=== PATIENT | male | born 1990 | race Caucasian/White ===

== ENCOUNTER 2017-02-13 18:29 | Emergency (ER) | payer BC ==
[2017-02-13] MEDS ORDERED: Diphtheria,Pertussis(Acell),Tetanus Vaccine 0.5 ML Syringe IM ONE (18:51)
[2017-02-13] MEDS ORDERED: Bacitracin Oint 1 GM U/D Packet TOP ONE (19:10)
--- NOTE | 2017-02-13 19:26 | EDM.PDOC ---
ED HPI Skin/Rash - General Chief Complaint: Laceration Stated Complaint: LACERATION RT INDEX FINGER Time Seen by Provider: 02/13/17 19:10 Source: Reports: Patient History Limitations: Reports: No limitations - History of Present Illness INITIAL COMMENTS - FREE TEXT/NARRATIVE: HISTORY AND PHYSICAL: History of present illness: [] 26-year-old male with no significant past history now status post oval coley from a meat pumper of the very tip of his right index finger. Some bleeding now hemostatic. No nail bed involvement. Bone is not exposed. Tetanus is not up-to- date Review of systems: As per history of present illness and below otherwise all systems reviewed and negative. Past medical history: As per history of present illness and as reviewed below otherwise noncontributory. Surgical history: As per history of present illness and as reviewed below otherwise noncontributory. Social history: No reported history of drug or alcohol abuse. Family history: As per history of present illness and as reviewed below otherwise noncontributory. Physical exam: HEENT: Atraumatic, normocephalic, pupils reactive, negative for conjunctival pallor or scleral icterus, mucous membranes moist, throat clear, neck supple, nontender, trachea midline. Lungs: Clear to auscultation, breath sounds equal bilaterally, chest nontender. Heart: S1S2, regular, negative for clicks, rubs, or JVD. Abdomen: Soft, nondistended, nontender. Negative for masses or hepatosplenomegaly. Negative for costovertebral tenderness. Pelvis: Stable nontender. Genitourinary: Deferred. Rectal: Deferred. Extremities: Atraumatic, negative for cords or calf pain. Neurovascular unremarkable. Neuro: Awake, alert, oriented. Cranial nerves II through XII unremarkable. Cerebellum unremarkable. Motor and sensory unremarkable throughout. Exam nonfocal. Diagnostics: [] Therapeutics: [] Impression: [] Plan: [] Definitive disposition and diagnosis as appropriate pending reevaluation and review of above. - Related Data Allergies Allergy/AdvReac Type Severity Reaction Status Date / Time prednisone Allergy Hives Verified 02/13/17 18:42 promethazine HCl Allergy Itching Verified 02/13/17 18:42 [From Phenergan] Home Meds: Ambulatory Orders Medication Instructions Recorded Confirmed Naphazoline HCl/Glycerin [Clear 1 drop EYEBOTH DAILY PRN 05/19/16 07/01/16 Eyes Redness Relief Drop] Levalbuterol Tartrate [Xopenex Hfa] 02/13/17 Past Medical History - Past Health History Medical/Surgical History: Denies Medical/Surgical History HEENT History: Reports: None Cardiovascular History: Reports: None Respiratory History: Reports: Asthma Gastrointestinal History: Reports: GERD Genitourinary History: Reports: None Musculoskeletal History: Reports: Other (see below) Other Musculoskeletal History: hx of torn tendon left ankle Neurological History: Reports: None Psychiatric History: Reports: None Endocrine/Metabolic History: Reports: None Hematologic History: Reports: None Immunologic History: Reports: None Oncologic (Cancer) History: Reports: None Dermatologic History: Reports: Condyloma - Infectious Disease History Infectious Disease History: Reports: Human papilloma virus (HPV) - Past Surgical History Head Surgeries/Procedures: Reports: None HEENT Surgical History: Reports: None Cardiovascular Surgical History: Reports: None Respiratory Surgical History: Reports: None Male Surgical History: Reports: None Endocrine Surgical History: Reports: None Neurological Surgical History: Reports: None Oncologic Surgical History: Reports: None Dermatological Surgical History: Reports: None Social & Family History - Tobacco Use Smoking Status *Q: Never Smoker Years of Tobacco use: 1 Used Tobacco, but Quit: Yes Month Tobacco Last Used: October Second Hand Smoke Exposure: No - Alcohol Use Days Per Week of Alcohol Use: 2 Number of Drinks Per Day: 1 Total Drinks Per Week: 2 - Recreational Drug Use Recreational Drug Use: Yes Drug Use in Last 12 Months: Yes Recreational Drug Type: Reports: Marijuana/Hashish Recreational Drug Use Frequency: Daily Recreational Drug Last Use: used last june 27 ED ROS GENERAL - Review of Systems Review Of Systems: See Below (See history of present illness) ED EXAM, SKIN/RASH Exam: See Below (Per history of present illness) Course - Vital Signs Text/Narrative:: Patient with a half centimeter by half centimeter extremely superficial avulsion to the very distal tip of his right index finger. He is right-hand dominant this injury has nothing to do with his function. It is extremely superficial neck no nailbed involvement or bony involvement. No gross contamination. Wound irrigated and dressing applied. Patient aware to do good wound care and apply topical anabolic ointment. Follow up PCP 2 days for wound check and return for signs of infection. Motrin and Tylenol as needed for pain Last Recorded V/S: Last Vital Signs Temp 36.6 C 02/13/17 19:55 Pulse 68 02/13/17 19:55 Resp 16 02/13/17 19:55 BP 125/74 02/13/17 19:55 Pulse Ox 99 02/13/17 19:55 - Orders/Labs/Meds Orders: Active Orders 24 hr Category Date Time Status Vaccines to be Administered [RC] PER UNIT ROUTINE Care 02/13/17 18:51 Active Meds: Medications Discontinued Medications Generic Name Dose Route Start Last Admin Trade Name Crystal PRN Reason Stop Dose Admin Bacitracin 1 dose 02/13/17 19:10 02/13/17 19:39 Bacitracin Oint 1 Gm TOP 02/13/17 19:11 1 dose ONETIME ONE Administration Diphtheria/Tetanus/Acell Pertussis 0.5 ml 02/13/17 18:51 02/13/17 19:17 Adacel IM 02/13/17 18:52 0.5 ml .ONCE ONE Administration Departure - Departure Time of Disposition: 19:38 Disposition: Home, Self-Care 01 Condition: good Clinical Impression: Avulsion of skin of finger without complication Instructions: Nail Avulsion, Nail Bed Injury, [id number] Referrals: PCP,None [Primary Care Provider] - Forms: ED Department Discharge Additional Instructions: You have an avulsion of your right index fingertip. Full coley means that some tissue has been removed. In your case this is a very small amount of skin at the tip of your finger and it does not involve your nailbed bone or any other structures except skin at the very tip. Use antibiotic ointment and a Band-Aid and take Motrin and Tylenol as needed for pain. Elevate if it's throbbing today in follow up with your DrVeronika in 2 days for a wound check. Return for signs of infection. Avoid bumping on things until healed as that will definitely hurt
[2017-02-13 19:56] VITALS: BP 125/74
== END 2017-02-13 19:56 | disposition home or self-care (01) ==
LOC: MW.ED 18:29
DX: S61.210A Laceration without foreign body of right index finger without damage to nail, initial encounter (principal); J45.909 Unspecified asthma, uncomplicated; K21.9 Gastro-esophageal reflux disease without esophagitis; Z88.8 Allergy status to other drugs, medicaments and biological substances; Z23 Encounter for immunization; W26.8XXA Contact with other sharp object(s), not elsewhere classified, initial encounter
CPT/HCPCS: 90471; 90715; 99282; 99282-25

== ENCOUNTER 2020-05-14 19:14 | Emergency (ER) | payer BC, OTHER ==
[2020-05-14 19:26] VITALS: BP 121/70; PULSE 58
--- NOTE | 2020-05-14 19:33 | EDM.PDOC ---
ED HPI GENERAL MEDICAL PROBLEM - General Chief Complaint: Genitourinary Problem Stated Complaint: LOWER BODY PAIN Time Seen by Provider: 05/14/20 19:18 Source of Information: Reports: Patient History Limitations: Reports: No Limitations - History of Present Illness INITIAL COMMENTS - FREE TEXT/NARRATIVE: HISTORY AND PHYSICAL: History of present illness: Patient is a 29-year-old male who presents to the emergency room with complaints of bilateral testicle pain. He states he was working on his truck yesterday when he hit himself in the testicles with a wrench. He states the pain started to improve last evening into today until he had gone to the gym. He now has moderate pain to bilateral testes which is somewhat improved with rest. Patient denies any fever, chills, headache, change in vision, syncope or near syncope. Denies any chest pain, back pain, shortness of breath or cough. Denies any abdominal pain, nausea, vomiting, diarrhea, constipation or dysuria. Has not noted any blood in urine or stool. Patient has been eating and drinking appropriately. Review of systems: As per history of present illness and below otherwise all systems reviewed and negative. Past medical history: As per history of present illness and as reviewed below otherwise noncontributory. Surgical history: As per history of present illness and as reviewed below otherwise noncont ributory. Social history: See social history for further information Family history: As per history of present illness and as reviewed below otherwise noncontributory. Physical exam: General: Well-developed and well-nourished 29-year-old male. Alert and oriented. Nontoxic-appearing and in no acute distress. HEENT: Atraumatic, normocephalic, pupils equal and reactive bilaterally, negative for conjunctival pallor or scleral icterus, mucous membranes moist, TMs normal bilaterally, throat clear, neck supple, nontender, trachea midline. No drooling or trismus noted. No meningeal signs. No hot potato voice noted. Lungs: Clear to auscultation, breath sounds equal bilaterally, chest nontender. Heart: S1S2, regular rate and rhythm without overt murmur Abdomen: Soft, nondistended, nontender. Negative for masses or hepatosplenomegaly. Negative for costovertebral tenderness. Pelvis: Stable nontender. Genitourinary: This was done with consent and a barrel lathe operator outside at the bedside. Testes symmetrical bilaterally without any redness or soft tissue swelling noted. Mild tenderness with palpation of bilateral testes. No inguinal hernia appreciated bilaterally. +Cremasteric reflex. Skin: Intact, warm, dry. No lesions or rashes noted. Extremities: Atraumatic, moves all extremities per self without difficulty or deficits, negative for cords or calf pain. Neurovascular unremarkable. Neuro: Awake, alert, oriented. Cranial nerves II through XII unremarkable. Cerebellum unremarkable. Motor and sensory unremarkable throughout. Exam nonfocal. Notes: Patient is declining wanting to give a urine sample regardless of education. * Please note patient left before reviewing his results or being discharged. Ultrasound shows minimal bilateral hydroceles believed to be incidental. No scrotal hematoma. No epididymitis or abnormalities are noted. Good blood flow seen to both testes. Attempted to call patient with results. Diagnostics: UA, testicular ultrasound Therapeutics: None Prescription: Blanchard (#15) - Canceled Impression: Testicular injury Eloped Plan: 1. Wear supportive underwear and avoid any heavy or strenuous lifting over the next several days (3-7 days). Gentle ice to the painful areas. 2. You can alternate Tylenol and ibuprofen as needed for pain management. Blanchard for moderate to severe pain. This medication may cause drowsiness so do not take it while driving or needing to be functioning outside of the house. 3. Follow-up with your primary care provider as we discussed. Return to the ED as needed and as discussed. Definitive disposition and diagnosis as appropriate pending reevaluation and review of above. bilateral testes Pain Score (Numeric/FACES): 8 - Related Data Allergies Allergy/AdvReac Type Severity Reaction Status Date / Time prednisone Allergy Hives Verified 05/14/20 19:26 promethazine HCl Allergy Itching Verified 05/14/20 19:26 [From Phenergan] Home Meds: Home Meds Levalbuterol Tartrate [Xopenex Hfa] 2 puff INH Q6HR PRN 02/13/17 [History] Acetaminophen/HYDROcodone [Blanchard 325-5 MG] 1 tab PO Q4H PRN #15 tablet 05/14/20 [Rx] Past Medical History - Past Health History Medical/Surgical History: Denies Medical/Surgical History HEENT History: Reports: None Cardiovascular History: Reports: None Respiratory History: Reports: Asthma Gastrointestinal History: Reports: GERD Genitourinary History: Reports: None Musculoskeletal History: Reports: Other (See Below) Other Musculoskeletal History: hx of torn tendon left ankle Neurological History: Reports: None Psychiatric History: Reports: None Endocrine/Metabolic History: Reports: None Hematologic History: Reports: None Immunologic History: Reports: None Oncologic (Cancer) History: Reports: None Dermatologic History: Reports: Condyloma - Infectious Disease History Infectious Disease History: Reports: Human Papilloma Virus (HPV) - Past Surgical History Head Surgeries/Procedures: Reports: None HEENT Surgical History: Reports: None Cardiovascular Surgical History: Reports: None Respiratory Surgical History: Reports: None Male Surgical History: Reports: None Endocrine Surgical History: Reports: None Neurological Surgical History: Reports: None Oncologic Surgical History: Reports: None Dermatological Surgical History: Reports: None ED ROS GENERAL - Review of Systems Review Of Systems: Comprehensive ROS is negative, except as noted in HPI. ED EXAM, RENAL/ - Physical Exam Exam: See Below (See dictation) Course - Vital Signs Last Recorded V/S: Last Vital Signs Temp 96.2 F L 05/14/20 19:17 Pulse 58 L 05/14/20 19:17 Resp 17 05/14/20 19:17 BP 121/70 05/14/20 19:17 Pulse Ox 98 05/14/20 19:17 - Orders/Labs/Meds Orders: Active Orders 24 hr Category Date Time Status Scrotal Duplex Ltd [US] Stat Exams 05/14/20 19:44 Taken UA RFX IMKE AND CULT IF INDIC [URIN] Stat Lab 05/14/20 19:29 Ordered Departure - Departure Time of Disposition: 20:47 Disposition: Home, Self-Care 01 Clinical Impression: Eloped from emergency department Testicular injury Qualifiers: Encounter type: initial encounter Qualified Code(s): S39.94XA - Unspecified injury of external genitals, initial encounter - Discharge Information Prescriptions: Acetaminophen/HYDROcodone [Blanchard 325-5 MG] 1 tab PO Q4H PRN #15 tablet PRN Reason: Pain Instructions: Contusion, [id number] Forms: ED Department Discharge Additional Instructions: The following information is given to patients seen in the emergency department who are being discharged to home. This information is to outline your options for follow-up care. We provide all patients seen in our emergency department with a follow-up referral. The need for follow-up, as well as the timing and circumstances, are variable depending upon the specifics of your emergency department visit. If you don't have a primary care physician on staff, we will provide you with a referral. We always advise you to contact your personal physician following an emergency department visit to inform them of the circumstance of the visit and for follow-up with them and/or the need for any referrals to a consulting specialist. The emergency department will also refer you to a specialist when appropriate. This referral assures that you have the opportunity for follow-up care with a specialist. All of these measure are taken in an effort to provide you with optimal care, which includes your follow-up. Under all circumstances we always encourage you to contact your private physician who remains a resource for coordinating your care. When calling for follow-up care, please make the office aware that this follow-up is from your recent emergency room visit. If for any reason you are refused follow-up, please contact the [facility] Emergency Department at and asked to speak to the emergency department charge nurse. [facility] [address] [place], [place] [id number] [place] [address] 1. Wear supportive underwear and avoid any heavy or strenuous lifting over the next several days (3-7 days). Gentle ice to the painful areas. 2. You can alternate Tylenol and ibuprofen as needed for pain management. Blanchard for moderate to severe pain. This medication may cause drowsiness so do not take it while driving or needing to be functioning outside of the house. 3. Follow-up with your primary care provider as we discussed. Return to the ED as needed and as discussed. Sepsis Event Note (ED) - Evaluation Sepsis Screening Result: No Definite Risk - Focused Exam Vital Signs: Vital Signs Temp Pulse Resp BP Pulse Ox 05/14/20 19:17 96.2 F L 58 L 17 121/70 98 - My Orders Last 24 Hours: My Active Orders 05/14/20 19:29 UA RFX MIKE AND CULT IF INDIC [URIN] Stat - Assessment/Plan Last 24 Hours: My Active Orders 05/14/20 19:29 UA RFX MIKE AND CULT IF INDIC [URIN] Stat
--- NOTE | 2020-05-14 20:16 | US ---
Testicular ultrasound: Multiple real-time images of the testicles were obtained. Testicles have a homogeneous appearance without intratesticular abnormality. Both arterial and venous blood flow are seen within the testicles. Minimal hydroceles are noted on both sides. No scrotal hematoma is seen. No epididymal abnormalities are appreciated. Measurements: Right testicle: 4.8 x 2.0 x 3.3 cm Left testicle: 3.4 x 2.2 x 3.2 cm Impression: 1. Minimal bilateral hydroceles believed to be incidental. 2. Testicular ultrasound is otherwise unremarkable. Diagnostic code #1 Study was dictated in MDT
--- NOTE | 2020-05-15 11:12 | US ---
EXAM DATE: 05/14/20 PATIENT'S AGE: 29 Testicular ultrasound: Multiple real-time images of the testicles were obtained. Testicles have a homogeneous appearance without intratesticular abnormality. Both arterial and venous blood flow are seen within the testicles. Minimal hydroceles are noted on both sides. No scrotal hematoma is seen. No epididymal abnormalities are appreciated. Measurements: Right testicle: 4.8 x 2.0 x 3.3 cm Left testicle: 3.4 x 2.2 x 3.2 cm Impression: 1. Minimal bilateral hydroceles believed to be incidental. 2. Testicular ultrasound is otherwise unremarkable. Diagnostic code #1 Study was dictated in MDT Report Signed by Proxy. TUSHAR
== END 2020-05-14 20:47 | disposition home or self-care (01) ==
LOC: MW.ED 19:14
DX: S39.94XA Unspecified injury of external genitals, initial encounter (principal); J45.909 Unspecified asthma, uncomplicated; Z79.899 Other long term (current) drug therapy; Z88.8 Allergy status to other drugs, medicaments and biological substances; W22.8XXA Striking against or struck by other objects, initial encounter
CPT/HCPCS: 76870; 76870-26; 93976; 93976-26; 99282; 99284-25

== ENCOUNTER 2020-12-09 05:54 | Emergency (ER) | payer BC, OTHER ==
--- NOTE | 2020-12-09 06:21 | EDM.PDOC ---
ED HPI GENERAL MEDICAL PROBLEM - General Chief Complaint: Lower Extremity Injury/Pain Stated Complaint: PAIN/SWELLING IN BIG TOE ON LEFT FOOT Time Seen by Provider: 12/09/20 06:05 - History of Present Illness INITIAL COMMENTS - FREE TEXT/NARRATIVE: HISTORY AND PHYSICAL: History of present illness: This is a 30-year-old gentleman who presents ER today complaining of pain to his left great toe after dropping a 25 pound weight on it yesterday evening. Patient presents ER today secondary to pain and swelling to his big toe. Patient with any complaints or trauma. Patient has a history of hypertension, diabetes, liver, lung, kidney problems. Patient has no known drug allergies. Patient denies any alcohol or drugs. Patient reports he took ibuprofen earlier today for the pain and discomfort. Review of systems: As per history of present illness and below otherwise all systems reviewed and negative. Past medical history: As per history of present illness and as reviewed below otherwise noncontributory. Surgical history: As per history of present illness and as reviewed below otherwise noncontributory. Social history: No reported history of drug or alcohol abuse. Family history: As per history of present illness and as reviewed below otherwise noncontributory. Physical exam: Constitutional: Patient is oriented to person, place, and time. Appears well- developed and well-nourished. No distress. HEENT: Moist mucous membranes Head: Normocephalic and atraumatic Eyes: Right eye exhibits no discharge. Left eye exhibits no discharge. No scleral icterus Neck: Normal range of motion. No tracheal deviation present. Cardiovascular: Normal rate and regular rhythm. Pulmonary: Effort normal, no respiratory distress. Abdominal: No distention Musculoskeletal: Normal range of motion Neurologic: Alert and oriented to person, place and time. Skin: [place], warm and dry. Psychiatric: Normal mood and affect. Behavior is normal. Judgment and thought content normal. Nursing note and vital signs have been reviewed Patient's ER physical exam is significant for swelling, ecchymosis, tenderness of his left great toe over the distal phalanx. There is about a 30% subungual hematoma. This patient was seen and evaluated during the 2019 SARS-CoV-2 novel coronavirus pandemic period. Community viral transmission is ongoing at time of this encounter and the emergency department is operating under pandemic response procedures. Diagnostics: X-ray big toe left: Therapeutics: DME for discharge: Patient with a fracture of his distal phalanx of his left great toe. A postop shoe will be ordered to assist with immobilization of the fracture of the distal phalanx of the left great toe. This will assist with healing of the fracture segment. Patient will need to utilize the shoe for 2 weeks. Assessment and plan: 30-year-old gentleman who presents ER today secondary to pain to his left great toe. X-ray of the left great toe reveals a fracture of the distal phalanx of the great toe. Patient was placed in a postop shoe to assist with healing. Patient be given a prescription for ibuprofen and Ultram for the pain. Patient will be referred to orthopedics for further long-term management of the fracture. Reassessment at the time of disposition demonstrates that the patient is in no acute distress. The patient has remained stable throughout the entire ED visit and is without objective evidence for acute process requiring urgent intervention or hospitalization. The patient is stable for discharge, counseling is provided as documented above, discussed symptomatic treatment and specific conditions for return. I have spoken with the patient/caregiver and discussed todays findings, in addition to providing specific details for the plan of care. Questions are answered and there is agreement with the plan. Definitive disposition and diagnosis as appropriate pending reevaluation and review of above. left great toe Pain Score (Numeric/FACES): 10 - Related Data Allergies Allergy/AdvReac Type Severity Reaction Status Date / Time prednisone Allergy Hives Verified 12/09/20 06:03 promethazine HCl Allergy Itching Verified 12/09/20 06:03 [From Phenergan] Home Meds: Home Meds Levalbuterol Tartrate [Xopenex Hfa] 2 puff INH Q6HR PRN 02/13/17 [History] Ibuprofen 600 mg PO Q6HR PRN #30 tablet 12/09/20 [Rx] traMADol [Ultram] 50 mg PO Q6H PRN #12 tab 12/09/20 [Rx] Past Medical History - Past Health History Medical/Surgical History: Denies Medical/Surgical History HEENT History: Reports: None Cardiovascular History: Reports: None Respiratory History: Reports: Asthma Gastrointestinal History: Reports: GERD Genitourinary History: Reports: None Musculoskeletal History: Reports: Other (See Below) Other Musculoskeletal History: hx of torn tendon left ankle Neurological History: Reports: None Psychiatric History: Reports: None Endocrine/Metabolic History: Reports: None Hematologic History: Reports: None Immunologic History: Reports: None Oncologic (Cancer) History: Reports: None Dermatologic History: Reports: Condyloma - Infectious Disease History Infectious Disease History: Reports: Human Papilloma Virus (HPV) - Past Surgical History Head Surgeries/Procedures: Reports: None HEENT Surgical History: Reports: None Cardiovascular Surgical History: Reports: None Respiratory Surgical History: Reports: None GI Surgical History: Reports: None Other GI Surgeries/Procedures: previous surgery for anal warts Male Surgical History: Reports: None Endocrine Surgical History: Reports: None Neurological Surgical History: Reports: None Musculoskeletal Surgical History: Reports: None Oncologic Surgical History: Reports: None Dermatological Surgical History: Reports: None Social & Family History - Family History Family Medical History: No Pertinent Family History - Tobacco Use Tobacco Use Status *Q: Current Every Day Tobacco User Years of Tobacco use: 8 Packs/Tins Daily: 1 - Caffeine Use Caffeine Use: Reports: Coffee - Recreational Drug Use Recreational Drug Use: No Review of Systems - Review of Systems Review Of Systems: See Below ED EXAM, GENERAL - Physical Exam Exam: See Below Course - Vital Signs Last Recorded V/S: Last Vital Signs Temp 96.8 F L 12/09/20 06:03 Pulse 61 12/09/20 06:03 Resp 18 12/09/20 06:03 BP 97/70 12/09/20 06:03 Pulse Ox 94 L 12/09/20 06:03 - Orders/Labs/Meds Orders: Active Orders 24 hr Category Date Time Status Toes Great Toe Lt TA [CR] Stat Exams 12/09/20 06:14 Taken DME for Discharge [COMM] Stat Oth 12/09/20 06:44 Ordered Departure - Departure Time of Disposition: 06:47 Disposition: Home, Self-Care 01 Condition: Good Clinical Impression: Fracture of toe of left foot Qualifiers: Encounter type: initial encounter Toe: great toe Fracture type: closed Phalanx: distal Fracture alignment: nondisplaced Qualified Code(s): S92.425A - Nondisplaced fracture of distal phalanx of left great toe, initial encounter for closed fracture - Discharge Information Prescriptions: Ibuprofen 600 mg PO Q6HR PRN #30 tablet PRN Reason: Pain traMADol [Ultram] 50 mg PO Q6H PRN #12 tab PRN Reason: Pain Instructions: Toe Fracture, [id number] Referrals: PCP,None [Primary Care Provider] - Forms: ED Department Discharge Additional Instructions: Your seen and evaluated in the ER today for a toe fracture. You will be placed in a hard soled shoe to assist with healing of the fracture. You will be given a prescription for ibuprofen and Ultram to help with the pain. Please make an appointment to follow-up with your family doctor or with the orthopedic clinic for follow-up appointment. [facility] Professional Building [address] [place] [address], [address] [place] [address] The following information is given to patients seen in the emergency department who are being discharged to home. This information is to outline your options for follow-up care. We provide all patients seen in our emergency department with a follow-up referral. The need for follow-up, as well as the timing and circumstances, are variable depending upon the specifics of your emergency department visit. If you don't have a primary care physician on staff, we will provide you with a referral. We always advise you to contact your personal physician following an emergency department visit to inform them of the circumstance of the visit and for follow-up with them and/or the need for any referrals to a consulting specialist. The emergency department will also refer you to a specialist when appropriate. This referral assures that you have the opportunity for follow-up care with a specialist. All of these measure are taken in an effort to provide you with optimal care, which includes your follow-up. Under all circumstances we always encourage you to contact your private physician who remains a resource for coordinating your care. When calling for follow-up care, please make the office aware that this follow-up is from your recent emergency room visit. If for any reason you are refused follow-up, please contact the [facility] Emergency Department at and asked to speak to the emergency department charge nurse. [facility] - [facility] [address] [address] [address] [place] [address] Sepsis Event Note (ED) - Evaluation Sepsis Screening Result: No Definite Risk - Focused Exam Vital Signs: Vital Signs Temp Pulse Resp BP Pulse Ox 12/09/20 06:03 96.8 F L 61 18 97/70 94 L - My Orders Last 24 Hours: My Active Orders 12/09/20 06:14 Toes Great Toe Lt TA [CR] Stat 12/09/20 06:44 DME for Discharge [COMM] Stat - Assessment/Plan Last 24 Hours: My Active Orders 12/09/20 06:14 Toes Great Toe Lt TA [CR] Stat 12/09/20 06:44 DME for Discharge [COMM] Stat
--- NOTE | 2020-12-09 07:06 | CR ---
HISTORY: Pain. TECHNIQUE: Three views of left great toe. COMPARISON: Left foot radiographs 08/30/2012. FINDINGS: Acute comminuted fracture of the great toe distal phalanx. Fracture extends from the base through the tuft. No significant displacement. No articular surface disruption. Soft tissue swelling in the great toe. Bipartite medial hallux sesamoid. Joint spaces are maintained. IMPRESSION: Acute comminuted fracture of the great toe distal phalanx. Dictated by Yemi Montoya MD @ Dec 09 2020 7:04AM Signed by Dr. Yemi Montoya @ Dec 09 2020 7:06AM
[2020-12-09 07:13] VITALS: BP 100/64; PULSE 66
== END 2020-12-09 07:12 | disposition home or self-care (01) ==
LOC: MW.ED 05:54
DX: S92.425A Nondisplaced fracture of distal phalanx of left great toe, initial encounter for closed fracture (principal); J45.909 Unspecified asthma, uncomplicated; E11.9 Type 2 diabetes mellitus without complications; I10 Essential (primary) hypertension; Z88.8 Allergy status to other drugs, medicaments and biological substances; Z72.0 Tobacco use; Z79.899 Other long term (current) drug therapy; W20.8XXA Other cause of strike by thrown, projected or falling object, initial encounter
CPT/HCPCS: 73660-26-TA; 73660-TA; 99283; 99283-25